=== PATIENT | male | born 1945 | race Hispanic/Latino ===

== ENCOUNTER 2019-05-15 18:51 | Emergency (ER) | payer MEDICARE ==
--- NOTE | 2019-05-15 20:49 | Emergency Department Report ---
- General Chief Complaint: Wound/Laceration Stated Complaint: CUT RT HAND Time Seen by Provider: 05/15/19 20:18 Source: patient Mode of arrival: Ambulatory Limitations: No Limitations - History of Present Illness Initial Comments: Patient is a 74-year-old male presents emergency room with complaints of a laceration to the right hand that occurred at 11 AM today. 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 He states initially there was bleeding but improved after he used a gauze and dressing. He states that he is on Coumadin. He denies any pain in the hand and he states he has full range of motion. He denies any numbness or weakness. He states his last tetanus immunization was 3 years ago. He has a past medical history of diabetes, A. fib. He denies any allergies medications. - Related Data Home Medications Medication Instructions Recorded Confirmed Last Taken Allopurinol [Zyloprim] 300 mg PO QDAY 03/05/16 03/05/16 Unknown Atenolol [Tenormin] 25 mg PO DAILY 03/05/16 03/05/16 Unknown Krill Oil 500 mg PO 03/05/16 Unknown Metformin HCl [Fortamet ER] 1,000 mg PO 03/05/16 Unknown Potassium Chloride [Klor-Con] 20 meq PO 03/05/16 Unknown Simvastatin (Nf) [Zocor TAB] 20 mg PO QHS 03/05/16 03/05/16 Unknown Previous Rx's Medication Instructions Recorded Last Taken Type Acetaminophen/Codeine [Tylenol #3] 1 tab PO Q6H PRN #20 tab 03/05/16 Unknown Rx Ibuprofen [Motrin 800 MG tab] 800 mg PO Q8HR PRN #30 tablet 03/05/16 Unknown Rx Acetaminophen/Codeine [Tylenol 1 tab PO Q6H PRN #7 tab 05/15/19 Unknown Rx /Codeine # 3 tab] cephALEXin [Keflex] 250 mg PO QID 7 Days #28 capsule 05/15/19 Unknown Rx Allergies Allergy/AdvReac Type Severity Reaction Status Date / Time No Known Allergies Allergy Verified 05/15/19 18:53 ED Review of Systems ROS: Stated complaint: CUT RT HAND Other details as noted in HPI Comment: All other systems reviewed and negative ED Past Medical Hx - Past Medical History Previous Medical History?: Yes Hx Hypertension: Yes Hx Diabetes: Yes Additional medical history: HIGH CHOLESTEROL, GOUT - Surgical History Past Surgical History?: Yes Hx Open Heart Surgery: Yes Additional Surgical History: QUAD BYPASS - Social History Smoking Status: Never Smoker Substance Use Type: None - Medications Home Medications: Home Medications Medication Instructions Recorded Confirmed Last Taken Type Acetaminophen/Codeine [Tylenol #3] 1 tab PO Q6H PRN #20 tab 03/05/16 Unknown Rx Allopurinol [Zyloprim] 300 mg PO QDAY 03/05/16 03/05/16 Unknown History Atenolol [Tenormin] 25 mg PO DAILY 03/05/16 03/05/16 Unknown History Ibuprofen [Motrin 800 MG tab] 800 mg PO Q8HR PRN #30 tablet 03/05/16 Unknown Rx Krill Oil 500 mg PO 03/05/16 Unknown History Metformin HCl [Fortamet ER] 1,000 mg PO 03/05/16 Unknown History Potassium Chloride [Klor-Con] 20 meq PO 03/05/16 Unknown History Simvastatin (Nf) [Zocor TAB] 20 mg PO QHS 03/05/16 03/05/16 Unknown History Acetaminophen/Codeine [Tylenol 1 tab PO Q6H PRN #7 tab 05/15/19 Unknown Rx /Codeine # 3 tab] cephALEXin [Keflex] 250 mg PO QID 7 Days #28 capsule 05/15/19 Unknown Rx ED Physical Exam - General Limitations: No Limitations General appearance: alert, in no apparent distress - Head Head exam: Present: atraumatic, normocephalic - Eye Eye exam: Present: normal appearance - ENT ENT exam: Present: mucous membranes moist - Extremities Exam Extremities exam: Present: other (2 cm laceration to the lateral right thenar emminence, no muscle or tendon invovlement, he has FROM of the right hand and right digits, he has full thumb adduction, abduction, flexion, extension, neurovascularly intact, there is a small amount of bleeding present, no foreign body) - Neurological Exam Neurological exam: Present: alert, oriented X3 - Psychiatric Psychiatric exam: Present: normal affect, normal mood - Skin Skin exam: Present: warm ED Course Vital Signs 05/15/19 05/15/19 19:21 22:02 Temperature 98.7 F Pulse Rate 71 60 Respiratory 18 16 Rate Blood Pressure 132/88 Blood Pressure 131/88 [Right] O2 Sat by Pulse 100 98 Oximetry - Laceration /Wound Repair Right Hand Wound Location: upper extremity (right, lateral thenar emminence ) Wound Length (cm): 2 Wound's Depth, Shape: superficial Wound Explored: clean Irrigated w/ Saline (ccs): 100 Betadine Prep?: Yes Anesthesia: Lidocaine w/ Epi (1%) Volume Anesthetic (ccs): 4 Wound Debrided: moderate Wound Repaired With: sutures Suture Size/Type: 4:0 Number of Sutures: 4 Layer Closure?: No Sterile Dressing Applied?: Yes Progress: surgicel placed in wound, bleeding significantly improved, wound irrigated with saline and thoroughly scrubbed with Betadine, 4 mL of 1% lidocaine with epinephrine used as anesthetic, 3-0 Prolene used for skin closure, 4 sutures placed, no tendon or muscle involvement, no foreign body, neurovascularly intact, bleeding has resolved, patient tolerated well, no complications ED Medical Decision Making - Medical Decision Making Patient is a 74-year-old male presents emergency room with complaints of a laceration to the right hand that occurred at 11 AM today. 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 He states initially there was bleeding but improved after he used a gauze and dressing. He states that he is on Coumadin. He denies any pain in the hand and he states he has full range of motion. He denies any numbness or weakness. He states his last tetanus immunization was 3 years ago. He has a past medical history of diabetes, A. fib. He denies any allergies medications. VSS. on exam: 2 cm laceration to the lateral right thenar emminence, no muscle or tendon invovlement, he has FROM of the right hand and right digits, he has full thumb adduction, abduction, flexion, extension, neurovascularly intact, there is a small amount of bleeding present, no foreign body. Initially there was bleeding present after placement of Surgicel and lidocaine with epinephrine bleeding completely resolved. Wound irrigated with saline and thoroughly scrubbed with Betadine and repaired per procedure note. Patient given prescription for Keflex due to delayed closure and Tylenol with codeine. advised pt to please take medication as prescribed. Do not drive or operate heavy machinery while taking pain medication. Keep wound clean, dry, covered. May wash with soap and water and immediately dry. No hot tub, pool, soaking in water. Follow up with your primary care doctor in the next 2-3 days for reevaluation. Sutures will need to be removed in 7-10 days. Return to the emergency room for any new or worsening symptoms or any signs of infection despite antibiotic therapy. Critical care attestation.: If time is entered above; I have spent that time in minutes in the direct care of this critically ill patient, excluding procedure time. ED Disposition Clinical Impression: Laceration of right hand Qualifiers: Encounter type: initial encounter Foreign body presence: without foreign body Qualified Code(s): S61.411A - Laceration without foreign body of right hand, initial encounter Disposition: TO HOME OR SELFCARE Is pt being admited?: No Does the pt Need Aspirin: No Condition: Stable Instructions: Suture Care (ED), Laceration (ED) Additional Instructions: please take medication as prescribed. Do not drive or operate heavy machinery while taking pain medication. Keep wound clean, dry, covered. May wash with soap and water and immediately dry. No hot tub, pool, soaking in water. Follow up with your primary care doctor in the next 2-3 days for reevaluation. Sutures will need to be removed in 7-10 days. Return to the emergency room for any new or worsening symptoms or any signs of infection despite antibiotic therapy. Prescriptions: cephALEXin [Keflex] 250 mg PO QID 7 Days #28 capsule Acetaminophen/Codeine [Tylenol /Codeine # 3 tab] 1 tab PO Q6H PRN #7 tab PRN Reason: Pain , Severe (7-10) Referrals: PRIMARY CARE, [Primary Care Provider] - 2-3 Days Time of Disposition: 21:28 Print Language: TAMAZIGHT
[2019-05-15] MEDS ORDERED: LIDOCAINE 1%/EPINEPHRINE 1:100,000 VIAL (20 ML) INFILTRATI NR (21:00)
[2019-05-15 22:06] VITALS: BP 131/88
== END 2019-05-15 22:01 | disposition home or self-care (01) ==
LOC: ED 18:51
DX: S61.411A Laceration without foreign body of right hand, initial encounter (principal); I10 Essential (primary) hypertension; E11.9 Type 2 diabetes mellitus without complications; Z98.890 Other specified postprocedural states; Z79.1 Long term (current) use of non-steroidal anti-inflammatories (NSAID); Z79.899 Other long term (current) drug therapy; W45.8XXA Other foreign body or object entering through skin, initial encounter; Y93.89 Activity, other specified; Y92.89 Other specified places as the place of occurrence of the external cause; Y99.8 Other external cause status